=== PATIENT | male | born 1995 | race Caucasian/White ===

== ENCOUNTER 2020-11-07 20:15 | Emergency (ER) | payer MEDICAID ==
[~2020-11-07] VITALS: Ht 162.6 cm; Wt 73.0 kg
[2020-11-07] MEDS ORDERED: HYDROCODONE/ACETAMINOPHEN 5/325MG TABLET PO ONE (21:45)
[2020-11-07] MEDS ORDERED: BACITRACIN ZINC OINT UDPKT TOP ONE (22:15)
[2020-11-07] MEDS ORDERED: TETANUS, DIPHTHERIA, PERTUSSIS VAC/PF 0.5ML (>7YR OLD) IM ONE (22:15)
[2020-11-07 22:56] VITALS: BP 110/58
== END 2020-11-07 23:07 | disposition home or self-care (01) ==
LOC: ER 20:15
DX: T22.012A Burn of unspecified degree of left forearm, initial encounter (principal); T31.0 Burns involving less than 10% of body surface; X16.XXXA Contact with hot heating appliances, radiators and pipes, initial encounter; Y93.89 Activity, other specified; Y92.89 Other specified places as the place of occurrence of the external cause; Y99.8 Other external cause status
CPT/HCPCS: 16000; 81025; 99282

== ENCOUNTER → 2020-11-10 | Emergency (ER) | payer MEDICAID ==
[~2020-11-10] VITALS: Ht 162.6 cm; Wt 73.0 kg
[2020-11-10 21:28] VITALS: BP 123/81
== END ==
LOC: ER 21:02
DX: Z53.21 Procedure and treatment not carried out due to patient leaving prior to being seen by health care provider (principal)